=== PATIENT | male | born 1995 | race Caucasian/White ===

== ENCOUNTER 2018-11-02 09:00 | Emergency (ER) | payer OTHER ==
[2018-11-02 09:11] VITALS: BP 122/71
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
== END 2018-11-02 11:44 | disposition home or self-care (01) ==
LOC: ED 09:00
DX: S16.1XXA Strain of muscle, fascia and tendon at neck level, initial encounter (principal); S29.019A Strain of muscle and tendon of unspecified wall of thorax, initial encounter; V49.40XA Driver injured in collision with unspecified motor vehicles in traffic accident, initial encounter; Y92.410 Unspecified street and highway as the place of occurrence of the external cause
CPT/HCPCS: 72072; 72125; 99283

== ENCOUNTER 2019-01-05 18:23 | Emergency (ER) | payer OTHER ==
[2019-01-05 18:31] VITALS: BP 143/81
--- NOTE | 2019-01-05 19:01 | ED Physician Documentation ---
PD HPI UPPER EXT INJURY - Stated complaint Stated Complaint: L ELBOW INJ - Chief complaint Chief Complaint: Heent - History obtained from History obtained from: Patient - History of Present Illness Location: Left, Elbow Type of injury: Fall Where injury occurred: Other (off a small heriberto) Timing - onset: How many days ago (10) Timing - duration: Days (10) Timing - details: Gradual onset Pain level max: 6 Pain level now: 3 Improved by: Rest, Ice, Immobilization Worsened by: Moving. No: Palpating Associated symptoms: No: Weakness, Numbness, Tingling, Swelling Similar symptoms before: Has not had sx before Recently seen: Not recently seen Review of Systems Musculoskeletal: denies: Neck pain, Back pain Neurologic: denies: Focal weakness, Numbness, Headache, Head injury, LOC PD PAST MEDICAL HISTORY - Past Medical History Past Medical History: No - Past Surgical History Past Surgical History: No - Allergies Allergies/Adverse Reactions: Allergies Allergy/AdvReac Type Severity Reaction Status Date / Time No Known Drug Allergies Allergy Verified 01/05/19 18:31 - Social History Does the pt smoke?: No Smoking Status: Never smoker Does the pt drink ETOH?: No Does the pt have substance abuse?: No PD ED PE NORMAL - Vitals Vital signs reviewed: Yes - General General: Alert and oriented X 3, No acute distress - Derm Derm: Warm and dry - Extremities Extremities: Other (Left elbow - Full range of motion, mild pain with full extension. No pain with pronation and supination. No bony tenderness. Neurovascularly intact. Otherwise normal exam of the arm) - Neuro Neuro: Alert and oriented X 3 Results - Vitals Vitals: Vital Signs - 24 hr 01/05/19 18:28 Temperature 36.7 C Heart Rate 88 Respiratory 18 Rate Blood Pressure 143/81 H O2 Saturation 98 Oxygen O2 Source Room air - Rads (name of study) Left elbow x-ray Radiology: Prelim report reviewed, EMP read contemporaneously, See rad report (No acute abnormalities) PD MEDICAL DECISION MAKING - ED course Complexity details: reviewed results, re-evaluated patient, considered di fferential, d/w patient ED course: Left elbow contusion. No acute findings on x-ray. We will continue supportive care and follow-up with his doctor. Patient counseled regarding signs and symptoms for which I believe and urgent re-evaluation would be necessary. Patient with good understanding of and agreement to plan and is comfortable going home at this time This document was made in part using voice recognition software. While efforts are made to proofread this document, sound alike and grammatical errors may occur. Departure - Departure Disposition: 01 Home, Self Care Clinical Impression: Contusion of left elbow Qualifiers: Encounter type: initial encounter Qualified Code(s): S50.02XA - Contusion of left elbow, initial encounter Condition: Good Instructions: ED Contusion Elbow Follow-Up: your,doctor in 1 week [Other] Comments: Your x-ray does not show any acute abnormalities tonight. Follow-up with your doctor for further care. You can use Motrin or Tylenol as needed for pain.Return if you worsen Discharge Date/Time: 01/05/19 19:31
--- NOTE | 2019-01-05 19:23 | XRAY Report ---
Reason: injury Procedure Date: 01/05/2019 Accession Number: [id number] / [id number] Procedure: XR - Elbow 3 View LT CPT Code: FULL RESULT: EXAM: LEFT ELBOW RADIOGRAPHY EXAM DATE: 01/05/2019 07:00 PM. CLINICAL HISTORY: Elbow pain COMPARISON: None. TECHNIQUE: 3 views. FINDINGS: Bones: Normal. No fractures or bone lesions. Joints: Normal. No effusion. No subluxation. Soft Tissues: Normal. No soft tissue swelling. IMPRESSION: Negative elbow radiography. RADIA
== END 2019-01-05 19:31 | disposition home or self-care (01) ==
LOC: ED 18:23
DX: S50.02XA Contusion of left elbow, initial encounter (principal); W15.XXXA Fall from cliff, initial encounter; W22.8XXA Striking against or struck by other objects, initial encounter
CPT/HCPCS: 99282

== ENCOUNTER 2019-11-22 13:17 | Outpatient (CLI) | payer OTHER ==
[2019-11-22] MEDS ORDERED: BUFFERED LIDOCAINE 10 ML SYRINGE ONE (13:24)
[2019-11-22] MEDS ORDERED: IOTHALAMATE MEGLUMINE 50 ML VIAL ONE (13:25)
[2019-11-22] MEDS ORDERED: GADOBUTROL 7.5 MMOL/7.5 ML VIAL ONE (13:25)
[2019-11-22] MEDS ORDERED: IOTHALAMATE MEGLUMINE 50 ML VIAL IVP ONE (14:43)
[2019-11-22] MEDS ORDERED: GADOBUTROL 7.5 MMOL/7.5 ML VIAL IVP ONE (14:43)
[2019-11-22] MEDS ORDERED: BUFFERED LIDOCAINE 10 ML SYRINGE IU ONE (14:43)
--- NOTE | 2019-11-22 14:59 | XRAY Report ---
Reason: PAIN IN KNEE Procedure Date: 11/22/2019 Accession Number: [id number] / [id number] Procedure: FL - Arthrogram Needle Placement CPT Code: Final Report FULL RESULT: EXAM: LEFT KNEE ARTHROGRAPHIC INJECTION WITH FLUOROSCOPIC GUIDANCE EXAM DATE: 11/22/2019 02:08 PM. CLINICAL HISTORY: PAIN IN KNEE. COMPARISON: None. TECHNIQUE: The risks, benefits, and alternatives of the procedure were discussed with the patient. All questions were answered. Written and verbal consent were obtained. The knee joint was marked under fluoroscopy and prepped and draped in a sterile manner. Local anesthesia was performed with 1% lidocaine. A 22-gauge needle was then inserted into the knee joint. 30 mL of a solution containing 50% iodinated contrast and a 1:200 dilution of gadolinium contrast in sterile saline was then injected. The needle was removed without immediate complication. Other: None. Fluoroscopy Time: 0.1 minutes. Number of Images: 2. FINDINGS: Bones and joints: No fracture or subluxation. Injection: Fluoroscopic images demonstrate needle placement and contrast in the knee joint. IMPRESSION: Successful fluoroscopically guided arthrographic injection of the knee. RADIA
--- NOTE | 2019-11-22 17:04 | MRI Report ---
Reason: PAIN IN KNEE Procedure Date: 11/22/2019 Accession Number: [id number] / [id number] Procedure: MRI - Arthrogram Knee LT CPT Code: Final Report FULL RESULT: EXAM: LEFT KNEE MRI ARTHROGRAM WITH CONTRAST EXAM DATE: 11/22/2019 04:20 PM. CLINICAL HISTORY: PAIN IN KNEE. COMPARISON: None. TECHNIQUE: Multiplanar, multisequence T1-weighted and fluid-sensitive sequences of the knee after an arthrographic injection of dilute gadolinium, dictated under a separate exam. Other: None. FINDINGS: Cruciate ligaments: The anterior and posterior cruciate ligaments appear intact. Medial meniscus: Horizontal tear extending to the tibial articular surface of the posterior horn and posterior body. Tiny horizontal tear extending to the femoral articular surface at the body posterior junction. There is a very tiny amount of contrast entering these tears. Tiny paralabral cyst formation is seen without contrast filling. Lateral meniscus: Horizontal signal normality is seen throughout the body and anterior horn consistent with an underlying complex tear. Lobulated cyst formation within and peripheral to the anterior horn. However, no contrast filling of the paralabral cyst. There is an oblique radial component of the tear at the mid to anterior body at the free margin and tibial articular surface which demonstrates contrast filling. Remainder of the predominately horizontal tear within the body and anterior horn demonstrates no contrast filling. The cyst at the periphery of the anterior horn measures 1.0 x 1.5 x 2.5 cm. Collateral ligaments: The medial and fibular collateral ligaments appear intact. Bones and articular surfaces: Bone and marrow edema at the anteromedial aspect of the medial femoral condyle. This may reflect bone contusion. Sagittal T1 images demonstrate a curvilinear hypointense focus of signal which could represent a nondisplaced incomplete healing fracture. Correlate with history. Mild surface cartilage irregularity at the lateral facet of the patella. No significant articular cartilage defects are seen. Extensor mechanism: The patellar tendon and quadriceps insertion appear intact. IMPRESSION: 1. Complex tear at the body and anterior horn of the lateral meniscus. There is a partial-thickness radial component at the mid to anterior body which demonstrates contrast filling consistent with a current tear. Remainder of the tear is mostly horizontal in orientation with no contrast filling suggesting a tear that has been surgically repaired or healed. 2. Lobulated meniscal cyst at the anterior periphery of the lateral meniscus demonstrates no contrast filling. 3. Tiny horizontal tears at the body and posterior horn of the medial meniscus demonstrate only a trace amount of contrast filling. 4. Prominent marrow edema at the anteromedial aspect of the medial femoral condyle suspicious for bone contusion. Possibility of small nondisplaced incomplete healing fracture. RADIA
== END 2019-11-22 13:18 | disposition home or self-care (01) ==
LOC: DI 13:17
PROVIDERS: ATTEND Family Medicine
DX: S83.272A Complex tear of lateral meniscus, current injury, left knee, initial encounter (principal); M23.062 Cystic meniscus, other lateral meniscus, left knee; S83.242A Other tear of medial meniscus, current injury, left knee, initial encounter; M25.462 Effusion, left knee
CPT/HCPCS: 27369; 73722; 77002; A9585; Q9961

== ENCOUNTER 2020-03-07 11:53 | Day surgery (SDC) | payer OTHER ==
[2020-03-07] MEDS ORDERED: CEFAZOLIN SODIUM IN 0.9 % NACL 2 GM/100 ML BAG IV ONE (11:54)
[2020-03-07] MEDS ORDERED: LACTATED RINGERS 1,000 ML IV ONE (12:05)
--- NOTE | 2020-03-07 12:38 | ANESTHESIA ---
Pre-Anesthesia VS, & Labs - Diagnosis Left knee medial and lateral meniscus tear - Procedure left knee arthroscopy medial and lateral meniscal repair vs debridement Vital Signs: Temp Pulse Resp BP Pulse Ox 36.9 C 63 12 128/72 99 03/07/20 12:08 03/07/20 12:08 03/07/20 12:08 03/07/20 12:08 03/07/20 12:08 Height 6 ft Weight (kg) 97.98 kg Body Mass Index 29.5 - NPO >8 hours Home Medications and Allergies Home Medications: Ambulatory Orders Methylphenidate HCl [Concerta] 18 mg PO BID 03/04/20 Methylphenidate HCl [Concerta] 18 mg PO BID 03/04/20 Allergies/Adverse Reactions: Allergies Allergy/AdvReac Type Severity Reaction Status Date / Time No Known Drug Allergies Allergy Verified 03/04/20 13:38 Anes History & Medical History - Anesthetic History Anesthesia Complications: reports: No previous complications - Medical History Cardiovascular: reports: None Pulmonary: reports: None Gastrointestinal: reports: None Urinary: reports: None Neuro: reports: None Musculoskeletal: reports: None, Other Endocrine/Autoimmune: reports: None Blood Disorders: reports: None Skin: reports: None Smoking Status: Never smoker Psychosocial: reports: No issues indicated - Surgical History Eyes Ears Nose Throat (EENT): Tonsil/Adenoidectomy Exam General: Alert, Oriented x3, Cooperative, No acute distress Dental: WNL (permanent bottom retainer) Mouth Openin Fingerbreadth Neck Mobility: Normal Mallampati classification: III Thyromental Distance: 4-6 cm Respiratory: Lungs clear, Normal breath sounds, No respiratory distress, No accessory muscle use Cardiovascular: Regular rate, Normal S1, Normal S2, No murmurs Mental/Cognitive Status: Alert/Oriented X3, Normal for patient Plan Anesthesia Type: General Consent for Procedure(s) Verified and Reviewed: Yes Code Status: Attempt Resuscitation ASA classification: 1-Healthy patient Is this case an emergency?: No
[2020-03-07] MEDS ORDERED: EPINEPHrine 1 MG/ML AMP ONE (13:56)
[2020-03-07] MEDS ORDERED: PROPOFOL 200 MG/20 ML VIAL IVP ONE (14:45)
[2020-03-07] MEDS ORDERED: ONDANSETRON 4 MG/2 ML VIAL IVP ONE (14:45)
[2020-03-07] MEDS ORDERED: fentaNYL 100 MCG/2 ML VIAL IVP ONE (14:45)
[2020-03-07] MEDS: BUPIVACAINE 0.25% PF 30 ML VIAL ONE ×2 (15:36→16:34)
[2020-03-07] MEDS ORDERED: KETOROLAC 15 MG/ML VIAL ONE (16:52)
[2020-03-07] MEDS ORDERED: HYDROmorphone 0.5 MG/0.5 ML SYRINGE ONE (16:52)
[2020-03-07] MEDS ORDERED: ONDANSETRON 4 MG/2 ML VIAL IVP PRN (17:04)
[2020-03-07] MEDS ORDERED: oxyCODONE 5 MG TABLET PO PRN (17:04)
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
[2020-03-07 17:56] VITALS: BP 136/82
== END 2020-03-07 11:54 | disposition home or self-care (01) ==
LOC: SDS 11:53
PROVIDERS: ATTEND Orthopaedic Surgery
DX: S83.242A Other tear of medial meniscus, current injury, left knee, initial encounter (principal); S83.282A Other tear of lateral meniscus, current injury, left knee, initial encounter

== ENCOUNTER 2020-06-13 07:47 | Outpatient (CLI) | payer OTHER ==
--- NOTE | 2020-06-13 11:24 | MRI Report ---
PROCEDURE: Shoulder LT W/O INDICATIONS: LT SHOULDER PAIN TECHNIQUE: Noncontrast oblique coronal T2 fast spin echo with fat saturation, oblique sagittal T1 spin echo and T2 fast spin echo with fat saturation, axial T1 spin echo and T2 fast spin echo with fat saturation t hrough the shoulder. COMPARISON: None. FINDINGS: Image quality: Excellent. Rotator cuff: There is distal supraspinatus tendinosis at its insertion on humeral head. Distal infra spinatus and subscapularis tendons are intact. No rotator cuff muscle atrophy on sagittal images. Bones and bursae: No bone marrow contusions or fractures. No acromioclavicular joint degeneration. The acromion demonstrates conventional anatomy, without an os acromiale. No pathologic subacromial/ subdeltoid bursal fluid is present. Capsule and soft tissues: In the absence of intra-articular contrast, there is signal abnormality in volving the superior anterior labrum at 12 to 1:00 position concerning for focal superior anterior la bral tear. The glenohumeral ligaments appear intact. The long head of the biceps tendon demonstrates normal location and morphology. The rotator interval appears normal, without fibrosis. The coracoh umeral ligament is normal in thickness. IMPRESSION: 1. Distal supraspinatus tendinosis. No evidence of rotator cuff tendon tear. 2. No marrow edema. No fracture or dislocation. 3. Suggestion of focal superior anterior labral tear at 12 to 1:00 position. Reviewed by: Lenny White MD on 06/13/2020 11:23 AM PDT Approved by: Lenny White MD on 06/13/2020 11:23 AM PDT Station ID: [id number]
== END 2020-06-13 07:48 | disposition home or self-care (01) ==
LOC: DI 07:47
PROVIDERS: ATTEND Orthopaedic Surgery
DX: R93.6 Abnormal findings on diagnostic imaging of limbs (principal); M75.82 Other shoulder lesions, left shoulder

== ENCOUNTER 2020-07-18 09:05 | Day surgery (SDC) | payer OTHER ==
[2020-07-18] MEDS ORDERED: CEFAZOLIN SODIUM IN 0.9 % NACL 2 GM/100 ML BAG IV ONE (09:26)
--- NOTE | 2020-07-18 09:30 | ANESTHESIA ---
Pre-Anesthesia VS, & Labs - Diagnosis right meniscus tear - Procedure right knee arthroscopy, meniscal debridement Height: 6 ft Weight (kg): 103.42 kg Body Mass Index: 30.9 BMI Classification: Obese - NPO >8 hours - Lab Results Lab results reviewed: Yes Home Medications and Allergies Home Medications: Ambulatory Orders Methylphenidate HCl [Concerta] 27 mg PO BID 07/11/20 Methylphenidate HCl [Concerta] 27 mg PO BID 07/11/20 Allergies/Adverse Reactions: Allergies Allergy/AdvReac Type Severity Reaction Status Date / Time No Known Drug Allergies Allergy Verified 07/11/20 11:29 Anes History & Medical History - Anesthetic History Anesthesia Complications: reports: No previous complications Family history of Anesthesia Complications: Denies Family history of Malignant Hyperthermia: Denies - Medical History Cardiovascular: reports: None Pulmonary: reports: None Gastrointestinal: reports: None Urinary: reports: None Neuro: reports: None Musculoskeletal: reports: Other Endocrine/Autoimmune: reports: None Blood Disorders: reports: None Skin: reports: None Smoking Status: Never smoker - Surgical History Eyes Ears Nose Throat (EENT): Tonsil/Adenoidectomy Orthopedic: Arthroscopic surgery Exam General: Alert, Oriented x3, Cooperative, No acute distress Dental: Other (lower permanent retainer) Mouth Openin Fingerbreadth Neck Mobility: Normal Mallampati classification: II Respiratory: Lungs clear, Normal breath sounds, No respiratory distress, No accessory muscle use Cardiovascular: Regular rate, Normal S1, Normal S2, No murmurs Plan Anesthesia Type: General Consent for Procedure(s) Verified and Reviewed: Yes Code Status: Attempt Resuscitation ASA classification: 1-Healthy patient Is this case an emergency?: No
[2020-07-18] MEDS ORDERED: LACTATED RINGERS 1,000 ML IV ONE ×2 (09:50→12:44)
[2020-07-18] MEDS ORDERED: fentaNYL 100 MCG/2 ML VIAL IVP PRN (09:55)
[2020-07-18] MEDS ORDERED: HYDROmorphone 0.5 MG/0.5 ML SYRINGE IVP PRN (09:55)
[2020-07-18] MEDS ORDERED: NALOXONE 0.4 MG/ML VIAL IVP PRN (09:55)
[2020-07-18] MEDS ORDERED: ePHEDrine 50 MG/ML VIAL IVP PRN (09:55)
[2020-07-18] MEDS ORDERED: MORPHINE 2 MG/ML CARPUJECT IVP PRN (09:55)
[2020-07-18] MEDS ORDERED: ONDANSETRON 4 MG/2 ML VIAL IVP PRN ×2 (09:55→13:05)
[2020-07-18] MEDS ORDERED: ATROPINE ABBOJECT 1 MG/10 ML SYRINGE IVP PRN (09:55)
[2020-07-18] MEDS ORDERED: METOCLOPRAMIDE 10 MG/2 ML VIAL IVP PRN (09:55)
[2020-07-18] MEDS ORDERED: LACTATED RINGERS 1,000 ML IV SCH (10:00)
[2020-07-18] MEDS ORDERED: BUPIVACAINE 0.25% PF 30 ML VIAL ONE (10:20)
[2020-07-18] MEDS ORDERED: EPINEPHrine 1 MG/ML AMP ONE (10:21)
[2020-07-18] MEDS ORDERED: PROPOFOL 200 MG/20 ML VIAL IVP ONE (10:30)
[2020-07-18] MEDS ORDERED: DEXAMETHASONE 4 MG/ML VIAL IVP ONE (10:30)
[2020-07-18] MEDS ORDERED: fentaNYL 100 MCG/2 ML VIAL IVP ONE (10:30)
[2020-07-18] MEDS ORDERED: ONDANSETRON 4 MG/2 ML VIAL IVP ONE (10:30)
[2020-07-18] MEDS ORDERED: LIDOCAINE-MPF 2% 5 ML VIAL IM ONE (10:30)
[2020-07-18] MEDS ORDERED: BUPIVACAINE 0.25% PF 30 ML VIAL SUBQ ONE ×2 (11:12)
[2020-07-18] MEDS ORDERED: EPINEPHrine 1 MG/ML AMP IR ONE (11:17)
[2020-07-18] MEDS ORDERED: oxyCODONE 5 MG TABLET PO PRN (13:05)
--- NOTE | 2020-07-18 13:11 | ANESTHESIA POST OP EVALUATION ---
Anesthesia Post Eval - Post Anesthesia Eval Vitals: Last Vital Signs Temp 36.5 C 07/18/20 13:05 Pulse 84 07/18/20 13:05 Resp 12 07/18/20 13:05 BP 154/72 H 07/18/20 13:05 Pulse Ox 98 07/18/20 13:05 CV Function Including HR & BP: positive: Stable Pain Control: positive: Satisfactory Nausea & Vomiting: positive: Negative Mental Status: positive: Baseline Respiratory Status: Airway Patent Hydration Status: Satisfactory Anesthesia Complications: positive: None
--- NOTE | 2020-07-18 13:23 | OPERATIVE REPORT ---
Operative Report - General Procedure Date: 07/18/20 - Other Other Information/Narrative: Date of Procedure: July 18, 2020 Planned Procedure: Right knee arthroscopy, meniscal debridement versus repair, possible arthroscopic versus open open meniscal cyst decompression Pre-op diagnosis: Right knee lateral meniscus tear, lateral para meniscal cyst Procedure performed: Right knee arthroscopy, lateral meniscus debridement, arthroscopic cyst decompression and trephination, medial plica debridement Post-op diagnosis: Right knee complex lateral meniscal tear, lateral parameniscal cysts, prominent medial plica Primary Surgeon: JENNIFER SUMMERS Secondary Surgeon: Mendez Anesthesia: General, LMA EBL: 5 ml Tourniquet: Approximately 80 minutes, right thigh at 250mmHg. Arthroscopic findings right knee: 1. Patella: Normal 2. Trochlea: Mild shallow grooving 3. Medial Compartment: Medial root intact, no medial meniscal tear is appreciated. Medial femoral condyle and medial tibial plateau overall normal- appearing without significant wear. There was a prominent medial plica that was debrided to the level of the capsule. 4. Lateral Compartment: Lateral root intact. Large complex meniscal tear centered about the lateral meniscal body, there was a radial component at the body, with extension of the horizontal and vertical component into the anterior and posterior horns. The tear was deemed to be unrepairable. The tear was debrided using a combination of meniscal biters, straight and angled sucker neha to a stable rim. There was a thin rim of meniscal tissue connecting the anterior and posterior horns at the conclusion of the debridement. 5. ACL and PCL: Intact, intact COMPLICATIONS: none IMPLANTS: None Indications for surgery: 24-year-old male with longstanding history of right lateral knee pain over the last 4 to 5 years. MRI and exam were consistent with a symptomatic lateral meniscal tear and/or associated parameniscal cysts. He had failed extensive nonoperative management. The risks, benefits, and alternatives were discussed. Risks include pain, bleeding, infection, damage to nearby structures and cartilage, lack of symptom relief, need for further surgery, DVT, PE, stroke, and . Written consent was obtained. Procedure Details: The patient was met in the pre-operative hold area. Persistence of symptoms and consent was verified. The patient verified the surgical site as the right knee. The operative knee was initialed per our standard protocol using surgical marker. The patient then met with anesthesia and was brought back to the operating room. The patient was placed supine on the operating table. A general anesthetic was administered and LMA was placed. A well-padded tourniquet was placed on the right thigh. Following tourniquet placement, the right lower extremity was then prepped and draped in the usual sterile fashion. A surgical timeout was performed, verifying the correct patient, the correct procedure and surgical site. We confirmed that perioperative antibiotics had been administered. Everyone agreed to proceed. The Escmarch was used to exsanguinate the right lower extremity and the tourniquet was raised. An 11 blade scalpel was used to make an anterolateral arthroscopic portal, the anter omedial was created using needle localization and direct visualization. The arthroscope was introduced into the knee and a diagnostic arthroscopy was performed with the above-stated findings. A limited debridement of the anterior fat pad was performed to improve visualization. The prominent medial plica was debrided using arthroscopic sucker shaver back to the level of the joint capsule. Upon entering the lateral compartment of the knee, a large complex tear of the lateral meniscus was observed. There was a radial component near the center of the lateral meniscal body, with extension of horizontal vertical and oblique components both anteriorly and posteriorly away from the radial component. The meniscal tissue was degenerative, and this coupled with the tear configuration was nonrepairable. Arthroscopic biters and both straight and angled sucker neha were used to debride the torn meniscal tissue and debride the meniscus back to a stable rim. The probe was used to explore any caseous or split areas in the meniscus, with some return of cystic appearing fluid from the probed clefts with external pressure on the anterolateral knee. The arthroscopic probe was used to ensure that the remaining meniscal tissue was stable. Following completion of the meniscal debridement, there was a stable rim of tissue peripherally, with the majority of the lateral meniscal body debri ded. To ensure cyst decompression, an 18-gauge spinal needle was introduced through the skin at the level of the joint line at the known site of the cysts through the meniscus and into the joint. This process was repeated several times. Final pictures were taken. The arthroscopic instruments were then removed from the knee. The portals were closed with 3-0 Monocryl. The incisions were dressed with Xeroform gauze, 4x4 gauze, an ABD and NIVIA stocking. The tourniquet was lowered. The surgical drapes were removed. At this point, I realized that we had neglected to infiltrate the incisions and periarticular tissues with local anesthetic. The NIVIA hose was taken down, the dressing was removed down to the level of the Xeroform, the anterior knee was reprepped in sterile fashion using ChloraPrep and then approximately 22 mL of quarter percent Marcaine plain was injected around the incisions and into the knee joint. The incisions were redressed with new 4 x 4 gauze and new ABDs. The thigh-high NIVIA stocking was replaced. At this point, the patient was awoken from anesthesia, transferred to the hospital bed, and taken to the PACU for recovery in good condition. Postoperative plan: 1. Discharge home from the same day surgery facility once the patient has met discharge criteria. 2. Advance weightbearing as tolerated, range of motion as tolerated, and wean from crutches as tolerated as gait normalizes. 3. Return to clinic in 5-7 days for wound check. Will start formal PT at that time. 4. Allow advancement of activities as tolerated with full clearance for all activities anticipated in 6-8 weeks postoperatively.
[2020-07-18] MEDS ORDERED: oxyCODONE 5 MG TABLET ONE (13:26)
[2020-07-18 13:44] VITALS: BP 132/85
== END 2020-07-18 09:06 | disposition home or self-care (01) ==
LOC: SDS 09:05
PROVIDERS: ATTEND Orthopaedic Surgery
DX: S83.271A Complex tear of lateral meniscus, current injury, right knee, initial encounter (principal); M23.000 Cystic meniscus, unspecified lateral meniscus, right knee; E66.9 Obesity, unspecified; Z68.30 Body mass index [BMI] 30.0-30.9, adult; Z87.891 Personal history of nicotine dependence; M67.51 Plica syndrome, right knee

== ENCOUNTER 2020-11-15 23:32 | Emergency (ER) | payer OTHER ==
[2020-11-15 23:39] VITALS: BP 154/77
--- NOTE | 2020-11-15 23:46 | ED Physician Documentation ---
PD HPI UPPER EXT INJURY - Stated complaint Stated Complaint: LT THUMB LAC - Chief complaint Chief Complaint: Laceration - History obtained from History obtained from: Patient - History of Present Illness Location: Left, Finger (thumb) Type of injury: Laceration Where injury occurred: Home Timing - onset: How many minutes ago (approximately 40 minutes [employer]) Timing - details: Abrupt onset Pain level now: 2 Associated symptoms: Weakness. No: Numbness Contributing factors: No: Work related Similar symptoms before: Has not had sx before Recently seen: Not recently seen - Additonal information Additional information: Approximately 40 minutes prior to arrival, patient sustained a left thumb laceration while he was cutting carpet at home. Patient is right hand dominant. He is up-to-date on his tetanus immunization. He has mild painful discomfort associated with the laceration, and he notes weakness when he tries to extend the thumb Review of Systems Skin: reports: Laceration (s) Neurologic: reports: Focal weakness. denies: Numbness PD PAST MEDICAL HISTORY - Past Medical History Cardiovascular: None Respiratory: None Neuro: None Endocrine/Autoimmune: None GI: None : None HEENT: None Psych: ADD/ADHD Musculoskeletal: Other Derm: None - Past Surgical History Past Surgical History: No Ortho: Arthroscopic surgery HEENT: Tonsil/Adenoidectomy - Present Medications Home Medications: Ambulatory Orders Medication Instructions Recorded Confirmed Methylphenidate HCl [Concerta] 27 mg PO BID 07/11/20 07/11/20 cephALEXin [Keflex] 500 mg PO Q6H #28 11/16/20 - Allergies Allergies/Adverse Reactions: Allergies Allergy/AdvReac Type Severity Reaction Status Date / Time No Known Drug Allergies Allergy Verified 11/15/20 23:34 - Social History Does the pt smoke?: No Smoking Status: Never smoker Does the pt drink ETOH?: No Does the pt have substance abuse?: No PD ED PE NORMAL - Vitals Vital signs reviewed: Yes - General General: Alert and oriented X 3, No acute distress, Well developed/nourished - Derm Derm: Normal color - Extremities Extremities: No tenderness to palpate - Neuro Neuro: No sensory deficit PD ED PE EXPANDED - Extremities Extremities: Sensory intact, Vascular intact. No: Tendon intact (minimal extension at MCP joint of left thumb, no extension at left IP joint) RACHELE UE/Hands Visual: 1 - laceration (midway between IP and MCP joints) Results - Vitals Vitals: Vital Signs - 24 hr 11/15/20 23:34 Temperature 36.5 C Heart Rate 71 Respiratory 16 Rate Blood Pressure 154/77 H O2 Saturation 98 Oxygen O2 Source Room air Procedures - Laceration (location) Finger left Dorsal Length in cm: 2.5 Wound type: Linear, Clean, Other (extensor tendon is eventually visualized and is completely lacerated). No: Exposure of bone Neurovascular status: Sensory intact, Vascular intact Tendon involvement: Tendon Injury Anesthesia: Lidocaine 1%, With bicarb Wound preparation: Chlorhexadine, Wound explored, To the base. No: FB identified Skin layer closure: Nylon, Running, Size #-0 - enter number (4-0) Other: Patient tolerated well, No complications, Dressing applied, Tetanus UTD PD MEDICAL DECISION MAKING - ED course Complexity details: reviewed results, re-evaluated patient, considered differential, d/w patient, d/w sales support consultant ED course: patient presents with left thumb laceration complicated by laceration of the left thumb extensor tendon. He has obvious loss of function (extension) of interphalangeal joint. location of laceration and loss of function as well as visualization of the severed ends of the tendon are all c/w laceration through the extensor pollicis longus. the visualized portions of the tendon are not easily approximated at this time and thus I did not attempt tendon repair in ED. d/w Dr. Camargo (radio station engineer orthopedics for [facility]), recommends that I repair the skin laceration, give PO antibiotic (keflex) and rx for same for wound prophylaxis, and patient can be seen in outpatient setting within 7 days for surgical repair of the tendon. I discussed this plan with patient and he is comfortable with this. he has a scheduled appointment with an orthopedic surgeon in 3 days for a shoulder problem; I instructed him to contact the doctors office to inquire as to whether they can also address the current injury in the recommended time frame. patient is provided Dr. Bernal office information as well as another option for follow up to have the tendon injury addressed Departure - Departure Disposition: 01 Home, Self Care Clinical Impression: Laceration of left thumb with tendon involvement Qualifiers: Encounter type: initial encounter Qualified Code(s): S61.012A - Laceration without foreign body of left thumb without damage to nail, initial encounter Condition: Good Instructions: ED Laceration Hand, ED Laceration Tendon Follow-Up: Adelfo Camargo MD [Provider Admit Priv/Credential] - (3-5 days) Prescriptions: cephALEXin [Keflex] 500 mg PO Q6H #28 Comments: The extensor tendon of your thumb is lacerated (the extensor tendon is needed to extend the thumb ("thumbs up" or "hitch hike" position)). This will need to be repaired but is too complicated to be repaired in the emergency department. This injury does not require emergent repair, but should be repaired within 1 week. An orthopedic surgeon typically is the specialist that performs such a repair and you can call the office of your orthopedic surgeon or contact the orthopedic surgery group that was consulted tonight (the office information for Dr. Camargo is included in these discharge instructions). An antibiotic has been prescribed to help prevent infection. Forms: Activity restrictions Discharge Date/Time: 11/16/20 02:38
[2020-11-16] MEDS ORDERED: BUFFERED LIDOCAINE 10 ML SYRINGE IU STA (00:05)
[2020-11-16] MEDS ORDERED: BACITRACIN ZINC OINT 1 PACKET TOP STA (02:11)
[2020-11-16] MEDS ORDERED: cephALEXin 250 MG CAPSULE PO STA (02:12)
== END 2020-11-16 02:38 | disposition home or self-care (01) ==
LOC: ED 23:32
DX: S66.222A Laceration of extensor muscle, fascia and tendon of left thumb at wrist and hand level, initial encounter (principal); S61.012A Laceration without foreign body of left thumb without damage to nail, initial encounter; W27.8XXA Contact with other nonpowered hand tool, initial encounter; Y93.H3 Activity, building and construction; Y92.009 Unspecified place in unspecified non-institutional (private) residence as the place of occurrence of the external cause
CPT/HCPCS: 12001; 99281; 99282; A9270

== ENCOUNTER 2020-11-21 12:00 | Day surgery (SDC) | payer OTHER ==
[~2020-11-21 12:00] MED LIST: BUPIVACAINE 0.25% PF 10 ML VIAL ONE; ceFAZolin 2 GM/50 ML 2 GM/50 ML BAG IV ONE
[2020-11-21] MEDS ORDERED: LACTATED RINGERS 1,000 ML IV ONE ×3 (12:04→17:09)
--- NOTE | 2020-11-21 13:02 | ANESTHESIA ---
Pre-Anesthesia VS, & Labs - Diagnosis L thumb extensor tendon laceration - Procedure L thumb extensor tendon repair Vital Signs: Temp Pulse Resp BP Pulse Ox 36.4 C L 77 12 130/76 98 11/21/20 12:05 11/21/20 12:05 11/21/20 12:05 11/21/20 12:05 11/21/20 12:05 Height: 6 ft Weight (kg): 103 kg Body Mass Index: 30.8 BMI Classification: Obese - NPO >8 hours - Lab Results Lab results reviewed: Yes Home Medications and Allergies Home Medications: Ambulatory Orders Acetaminophen [Tylenol] 650 mg PO Q6H PRN 11/21/20 oxyCODONE [Roxicodone] 5 mg PO Q4H PRN 11/21/20 Methylphenidate HCl [Concerta] 27 mg PO BID 07/11/20 Acetaminophen [Tylenol] 650 mg PO Q6H PRN 11/21/20 oxyCODONE [Roxicodone] 5 mg PO Q4H PRN 11/21/20 Allergies/Adverse Reactions: Allergies Allergy/AdvReac Type Severity Reaction Status Date / Time No Known Drug Allergies Allergy Verified 11/15/20 23:34 Anes History & Medical History - Anesthetic History Anesthesia Complications: reports: No previous complications Family history of Anesthesia Complications: Denies Family history of Malignant Hyperthermia: Denies - Medical History Cardiovascular: reports: None Pulmonary: reports: None Gastrointestinal: reports: None Urinary: reports: None Neuro: reports: None Musculoskeletal: reports: Other Endocrine/Autoimmune: reports: None Blood Disorders: reports: None Skin: reports: None Smoking Status: Never smoker Psychosocial: reports: Alcohol (1/week), Other (ADD/ADHD) - Surgical History Eyes Ears Nose Throat (EENT): Tonsil/Adenoidectomy Orthopedic: Arthroscopic surgery (R and L knee scopes) Exam General: Alert, Oriented x3, Cooperative Dental: WNL Mouth Opening: Greater than 4 Fingerbreadths Neck Mobility: Normal Mallampati classification: I Thyromental Distance: 4-6 cm Respiratory: Lungs clear, Normal breath sounds, No respiratory distress Cardiovascular: Regular rate Neurological: Normal speech Mental/Cognitive Status: Alert/Oriented X3, Normal for patient Cognitive Status: Within normal limits Plan Anesthesia Type: General Consent for Procedure(s) Verified and Reviewed: Yes Code Status: Attempt Resuscitation ASA classification: 1-Healthy patient Is this case an emergency?: No
[2020-11-21] MEDS ORDERED: PROPOFOL 200 MG/20 ML VIAL IVP ONE (13:11)
[2020-11-21] MEDS ORDERED: LIDOCAINE-MPF 2% 5 ML VIAL ONE (13:11)
[2020-11-21] MEDS ORDERED: fentaNYL 100 MCG/2 ML VIAL ONE ×2 (15:20→16:16)
[2020-11-21] MEDS ORDERED: DEXAMETHASONE 4 MG/ML VIAL ONE (15:21)
[2020-11-21] MEDS ORDERED: ONDANSETRON 4 MG/2 ML VIAL ONE (15:21)
[2020-11-21] MEDS ORDERED: BUPIVACAINE 0.25% PF 10 ML VIAL SUBQ ONE (15:46)
[2020-11-21] MEDS ORDERED: METOCLOPRAMIDE 10 MG/2 ML VIAL IVP PRN (16:34)
[2020-11-21] MEDS ORDERED: NALOXONE 0.4 MG/ML VIAL IVP PRN (16:34)
[2020-11-21] MEDS ORDERED: MORPHINE 2 MG/ML CARPUJECT IVP PRN (16:34)
[2020-11-21] MEDS ORDERED: fentaNYL 100 MCG/2 ML VIAL IVP PRN (16:34)
[2020-11-21] MEDS ORDERED: ePHEDrine 50 MG/ML VIAL IVP PRN (16:34)
[2020-11-21] MEDS ORDERED: HYDROmorphone 0.5 MG/0.5 ML SYRINGE IVP PRN (16:34)
[2020-11-21] MEDS ORDERED: ATROPINE ABBOJECT 1 MG/10 ML SYRINGE IVP PRN (16:34)
[2020-11-21] MEDS ORDERED: ONDANSETRON 4 MG/2 ML VIAL IVP PRN ×2 (16:34→17:25)
[2020-11-21] MEDS ORDERED: LACTATED RINGERS 1,000 ML IV SCH (17:00)
[2020-11-21] MEDS ORDERED: oxyCODONE 5 MG TABLET PO PRN (17:25)
[2020-11-21 17:32] VITALS: BP 124/77
--- NOTE | 2020-11-21 17:33 | ANESTHESIA POST OP EVALUATION ---
Anesthesia Post Eval - Post Anesthesia Eval Vitals: Last Vital Signs Temp 36.7 C 11/21/20 17:30 Pulse 82 11/21/20 17:30 Resp 18 11/21/20 17:30 BP 124/77 11/21/20 17:30 Pulse Ox 96 11/21/20 17:30 CV Function Including HR & BP: positive: Stable Pain Control: positive: Satisfactory Nausea & Vomiting: positive: Negative Mental Status: positive: Baseline Respiratory Status: Airway Patent Hydration Status: Satisfactory Anesthesia Complications: positive: None
--- NOTE | 2020-11-21 17:59 | OPERATIVE REPORT ---
Operative Report - General Procedure Date: 11/21/20 - Procedure Note Anesthesia Technique: General LMA Estimated Blood Loss (mL): 5 - Other Other Information/Narrative: Date of Procedure: 21 November 2020 Planned Procedure: Left thumb wound exploration, irrigation and debridement, EPL repair Pre-op diagnosis: Left thumb traumatic EPL laceration Procedure performed: Left thumb wound exploration, irrigation and debridement, EPL repair Post-op diagnosis: Left thumb traumatic EPL laceration Primary Surgeon: JENNIFER SUMMERS Secondary Surgeon: Mendez Anesthesia: General LMA EBL: 5 ml Tourniquet: 75 minutes, left arm at 250mmHg. Specimen(s) Information: None Complication(s): None Condition: Stable to recovery Indications for Surgery: 25-year-old [id number] male sustained an injury to the contralateral thumb while cutting open a box on 15 November. The knife was sharp and came through the end of the box, slicing across the dorsal thumb overlying the proximal phalanx. He was seen in the emergency room, where the wound was probed, with reported complete laceration of the extensor tendon. He had no motion reported across the DIP joint. The wound was irrigated, closed, and he was started on prophylactic antibiotics. He presented for of the evaluation in the orthopedics clinic on 18 November. Based on his injury, he was indicated for operative intervention and repair of the EPL tendon. Risk benefits and alternatives to surgery were discussed. Risks of surgery were discussed to include bleeding, infection, postoperative stiffness, failure of repair persistence of symptoms, damage to nerves, vessels, tendons, ligaments, bone and cartilage and anesthesia complications to include medication side effects and allergic reactions and even . After discussion, they wished to proceed. Findings: Left thumb EPL tendon greater than 90% lacerated. Wound clean, without any signs or symptoms of infection. Skin edges slightly macerated. Descriptions of Procedure: The patient was met in the Preoperative Holding Area, at which time preoperative paperwork was confirmed. The operative site was marked per facility protocol. The patient was then brought to Main Operating Room, placed supine on the Operating Room table. General anesthesia was induced and a well-padded tourniquet was placed high on the left arm. Sutures from the ER were removed and passed off the field prior to prepping the limb. Following this, the left upper extremity was prepped and draped in the usual sterile fashion, and following this, a timeout was conducted to confirm correct patient, correct e xtremity and correct procedure and also to confirm presence and sterility of all required equipment and to confirm that antibiotics were being administered in the form of 2g of intravenous Ancef. Following timeout, the operative extremity was then exsanguinated with an Esmarch bandage and the tourniquet inflated to 250 mmHg. The traumatic laceration was opened using tenotomy scissors and extended proximally along the ulnar border of the thumb and distally along the radial border of the thumb. The skin edges of the laceration were freshened up using tenotomy scissors. A combination of blunt and sharp dissection was used to expose the proximal extent of the tendon was visible in the base of the wound this was systematically freed up, and then attention was turned to the distal tendon. This was also exposed and freed up. Once both ends of the tendon were visualized, the laceration was found to consist of approximately 90 to 95% of the width of the tendon, with a small band intact at the very radial aspect. We began our repair using 4-0 FiberWire in a modified Dumas fashion. Once the stitch had been placed, the tendon ends were reduced, with good contact. The stitch was tied. And then a second modified Dumas stitch was placed to further reinforce the repair, resulting in 4 core strands across the laceration. Following this, I took his thumb through a range of motion, flexing him at the MCP joint as well as the IP joint, with good gliding of the tendon noted, and no gapping appreciated at the repair site. The wound was irrigated and then the repair site was oversewn using a 5-0 Prolene in simple running and locking horizontal mattress fashion, resulting in smoothing of the repair site. Following this the finger was again taken through range of motion, with good tendon gliding and no repair site gapping noted. The wound was again irrigated, and then closure of the skin was performed utilizing 4-0 nylon in interrupted horizontal mattress fashion. 10 mL of quarter percent Marcaine plain were injected for postoperative pain control. The wound was dressed with Xeroform 4 x 4 gauze, webril and a "thumbs up" plaster splint, with the thumb in extension to take tension off of the repair site. The drapes were taken down. Anesthesia was reversed, and the patient was then brought to the Post Anesthesia Care for further recovery. Postoperative Plan: 1. The patient will be discharged from the Same Day Surgery Unit when discharge criteria are met. 2. The patient will remain in the splint until follow-up. Anticipate 4 weeks of immobilization followed by initiation of hand therapy. 3. Early ambulation for DVT prophylaxis. 4. Expect return to full activity in 3 to 4 months
== END 2020-11-21 12:01 | disposition home or self-care (01) ==
LOC: SDS 12:00
PROVIDERS: ATTEND Orthopaedic Surgery
DX: S66.222A Laceration of extensor muscle, fascia and tendon of left thumb at wrist and hand level, initial encounter (principal); E66.9 Obesity, unspecified; Z68.30 Body mass index [BMI] 30.0-30.9, adult
CPT/HCPCS: 26418; J0690; J7120